=== PATIENT | female | born 1930 | race Caucasian/White ===

== ENCOUNTER 2016-11-11 13:03 | Emergency (ER) | payer MEDICARE ==
[~2016-11-11] VITALS: Ht 170.2 cm; Wt 100.0 kg
[~2016-11-11 13:03] MED LIST: CARV6.25 PO; CHOL200025 PO; DULO20CA PO; FURO40TA4 PO; LISI-571 PO; MAGN250T29 PO; MULT-922 PO; SIMV40TA5 PO
[2016-11-11 13:06] VITALS: BP 127/71; PULSE 87; RESP 30; O2SAT 91
[2016-11-11 13:45] VITALS: PULSE 88; RESP 17; O2SAT 92
--- NOTE | 2016-11-11 14:51 | DRSVH ---
PROCEDURE: X-RAY CHEST ONE VIEW, PORTABLE ([id number]) INDICATIONS: cough for 2 weeks TECHNIQUE: One view of the chest was acquired. COMPARISON: [facility], CR, XR CHEST 2VW, 07/10/2016, 12:47. FINDINGS: Surgical changes and devices: Cardiac AICD Lungs and pleura: No pleural effusions or pneumothorax. Lungs are clear. Mediastinum: Mediastinal contours appear normal. Heart size is normal. Bones and chest wall: No suspicious bony lesions. Overlying soft tissues appear unremarkable. IMPRESSION: No acute disease Dictated by: Real Jon M.D. on 11/11/2016 at 14:49 Approved by: Real Jon M.D. on 11/11/2016 at 14:49
[2016-11-11 14:56] LABS: BASOPHILS % (AUTO) 0.2 % (0-3); EOSINOPHILS % (AUTO) 0.6 % (0-5); MONOCYTES % (AUTO) 10.2 % (4-12); Mean Corpuscular Hemoglobin 31.5 pg (27.0-35.0); Mean Corpuscular Volume 97.9 fL (81-100); NEUTROPHILS % (AUTO) 65.4 % (40-74); Platelet Count 170 bil/L (150-400)
--- NOTE | 2016-11-11 15:03 | ED.REPORT ---
HPI-Dyspnea / Wheezing Date of Service Nov 11, 2016 ED Provider: Dr. Do An 86 year old female with a history of bronchitis infections, asthma that only occurs during episodes of bronchitis, diabetes, CHF, peripheral neuritis, diffuse large cell B lymphoma, and anthracite induced cardio myopathy presents to the ED complaining of a wet, productive cough onset 2 weeks ago. Associated symptoms include nausea, weakness, SOB and loss of appetite with the patient being unable to eat for the last couple of days. SOB has been relieved by O2 given in the ED. The patient describes that current symptoms are very similar to those associated with past bronchitis infections. She has not had a bronchitis infection in a few years. She has not seen a doctor in the last two weeks, thinking that her symptoms were from a virus that she could overcome on her own. She reports having a pacemaker, defibrillator, and an albuterol inhaler. Her inhaler doses in May. The patient is pretty sure that they have taken Zithromax in the past and she reports no allergies to any antibiotics. She does not take medications for her diabetes. She lives in [facility]. Nursing Notes Stated Complaint: COUGH/NAUSEA Chief Complaint: Respiratory Complaints Nursing Notes Reviewed: Yes Allergies: Coded Allergies: nortriptyline (Verified Allergy, Unknown, 11/11/16) acetaminophen (Verified Adverse Reaction, Intermediate, Nausea, 11/11/16) hydrocodone bitartrate (Verified Adverse Reaction, Intermediate, Nausea, ) Scheduled Azithromycin (Zithromax) 250 Mg Tablet 250 MG PO DAILY Carvedilol (Coreg) 6.25 Mg Tablet 1.5 TAB PO BID Cholecalciferol (Vitamin D3) (Vitamin D3) 2,000 Unit Tablet 2,000 UNIT PO DAILY Duloxetine (Cymbalta) 20 Mg Capsule 20 MG PO DAILY Furosemide (Furosemide) 40 Mg Tablet 40 MG PO DAILY Lisinopril (Lisinopril) 5 Mg Tablet 5 MG PO BID Magnesium Oxide (Magnesium) 250 Mg Tablet 250 MG PO BID Multivitamins-Min/FA/Ginkgo (One Daily For Women 50+ Adv Tb) 1 Each Tablet 1 EACH PO DAILY Prednisone (PredniSONE) 20 Mg Tablet 40 MG PO DAILY Simvastatin (Simvastatin) 40 Mg Tablet 10 MG PO HS Scheduled PRN Albuterol Sulfate (Ventolin HFA Inhaler) 200 Puff/18 Gm Inhaler 1 PUFF INH Q4 PRN PRN For Wheezing Ondansetron ODT (Zofran ODT) 4 Mg Tablet 4 MG PO Q4H PRN PRN For Nausea General Time Seen by MD: 15:03 Chief Complaint Cough Hx Obtained From: Patient Arrived By: Walk-in Sudden in Onset?: Yes Onset Occurred: More than a week ago... 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 Gillespie is her oncologist. Reports: Asthma (Associated with bronchitis infections. ), Congestive heart failure, Diabetes mellitus Past Surgical History none reported. Smoking History Never Smoker Review of Systems Review of Systems Note: lossof appetite. Respiratory: Reports: Prod cough, clear, Shortness of breath Complete sys rev & neg: except as marked. GI: Reports: Nausea Neurologic: Reports: Weakness Physical Exam Initial Vital Signs Vital Signs (First) Date Time Temp Pulse Resp B/P Pulse Ox O2 Delivery O2 Flow Rate FiO2 11/11/16 13:06 36.8 87 30 127/71 91 Room Air 11/11/16 15:37 2 Initial VS: Reviewed General/Constitutional: Awake, Alert Neck: Atraumatic, Full range of motion Respiratory / Chest: No respiratory distress diffuse expitory wheezing. no increased work of breathing. Cardiovascular: Heart rate NL, Regular rhythm, Heart sounds NL, No gallop, No murmurs, No rubs ENT: Atraumatic, Mucous membranes moist Abdomen: Atraumatic, Soft, Non-tender, No guarding, No rebound Back: Atraumatic, Full range of motion Trace edema in lower extremities. Skin: Atraumatic, Color NL, Warm, Dry Neurologic: Oriented X3, Speech NL Head / Eyes: Atraumatic, Normocephalic, PERRL, EOMI Upper Extremity / MS: Atraumatic, Full range of motion Wrist / Hand: Atraumatic, Full range of motion Ankle / Foot: Atraumatic, Full range of motion Interpretation & Diagnostics Lab Results Interpretation Result Diagram: 11/11/16 1430 11/11/16 1430 Test 11/11/16 14:30 White Blood Count 4.6th/mm3 (3.8-10.1) Red Blood Count 3.75mil/mm3 (3.90-5.20) Hemoglobin 11.8g/dL (12.0-15.6) Hematocrit 36.7% (35.0-46.0) Mean Corpuscular Volume 97.9fL (81-100) Mean Corpuscular Hemoglobin 31.5pg (27.0-35.0) Mean Corpuscular Hemoglobin Concent 32.2% (32.0-37.0) Red Cell Distribution Width 12.6% (12.3-15.4) Platelet Count 170bil/L (150-400) Neutrophils (%) (Auto) 65.4% (40-74) Lymphocytes (%) (Auto) 23.6% (14-46) Monocytes (%) (Auto) 10.2% (4-12) Eosinophils (%) (Auto) 0.6% (0-5) Basophils (%) (Auto) 0.2% (0-3) Sodium Level 139mEq/L (134-144) Potassium Level 4.3mEq/L (3.5-5.2) Chloride Level 100mEq/L (97-108) Carbon Dioxide Level 26mmol/L (18-29) Blood Urea Nitrogen 11mg/dL (8-27) Creatinine 0.83mg/dL (0.57-1.00) Estimat Glomerular Filtration Rate 94mL/min (>59) Glucose Level 166mg/dL (60-99) Calcium Level 8.5mg/dL (8.5-10.1) Total Bilirubin 0.5mg/dL (0.0-1.2) Aspartate Amino Transf (AST/SGOT) 23U/L (0-50) Alanine Aminotransferase (ALT/SGPT) 11U/L (0-32) Alkaline Phosphatase 67U/L (25-165) Total Protein 6.9g/dL (6.4-8.4) Albumin 3.7g/dL (3.4-5.0) Hold Osto Top Tube Received (Received) X-Ray Chest Interpretation Chest Xray Interpretation: IMPRESSION: No acute disease Dictated by: Real Jon M.D. on 11/11/2016 at 14:49 Approved by: Real Jon M.D. on 11/11/2016 at 14:49 View: Portable, 1 view Re-Eval/Medical Decision Med Decision/Clinical Course 86-year-old female with a history of bronchitis and asthma presents with wheezing, borderline hypoxia, and shortness of breath. She received breathing treatment here and felt much better. She also received steroids, azithromycin, and Zofran to help with her nausea. Before discharge her pulse ox is borderline hovering around 90 patient felt much better and was agreeable to go home. We did a road test and her pulse ox remained around 93 but she became mildly tachycardic at 107. I went to recheck her prior to discharge and she was sleeping and pulse ox is 92%. Again patient expressed that she is feeling better and comfortable being discharged home Source of Hx: Old records Re-Evaluation/Progress #1: Time of Eval: 15:11 Re-Evaluation/Progress Note: Rechecked patient, explained diagnosis and plan for discharge. Patient understands and agrees with the plan. Re-Evaluation/Progress #2: Time of Eval: 16:06 Re-Evaluation/Progress Note: Rechecked patient. Her oxygen is at 96%. She is off O2 now. Wheezing persists, but she feels better. Re-Evaluation/Progress #3: Time of Eval: 16:32 Re-Evaluation/Progress Note: Rechecked patient. Notified by nurse that patient oxygen is hovering around 90%, she is on room air. Plan to perform road test prior to patient departure. Re-Evaluation/Progress #4: Time of Eval: 16:52 Re-Evaluation/Progress Note: Rechecked patient who is sleeping in her bed. Her oxygen is 92%. Counseled Regarding: Diagnosis, Lab results, Need for follow-up, When/why to return to ED Discharge & Departure Impression: Primary Impression: Acute bronchitis Bronchitis organism: unspecified organism Qualified Code: J20.9 - Acute bronchitis, unspecified Additional Impressions: Wheezing Nausea Hyperglycemia Disposition: Home Discharge Condition All VS Reviewed: Yes Condition: Stable Additional Instructions: You were found to have bronchitis here in the ER. Your labs looked good except for an elevated blood sugar which is related to your illness. You were treated with the first dose of zithromax(antibiotic) here as well as predisone, albuterol and zofran to help with nausea. Take Zithromax antibiotic as directed with food for 4 more days. Also take prednisone 40mg once daily to help with wheezing. Take nausea medication as needed. Return to the emergency department for any new or worsening symptoms. Please follow up with your doctor next week as scheduled. Referrals: Shelby Haynes (PCP) Shakira Attestation Portions of this note were transcribed by Enrique Bansal. I, Dr. Do personally performed the history, physical exam and medical decision-making; I reviewed and confirmed the accuracy of the information in the transcribed note. Signed by: Shakira Castro, 11/11/2016 1646. copies to: Shelby Haynes Gary R DO Nov 11, 2016 15:03 Enrique Bansal Nov 11, 2016 15:10
[2016-11-11] MEDS ORDERED: Albuterol-Ipratropium 3 mL Inhalation Solution NEB ONE (15:15)
[2016-11-11] MEDS ORDERED: ZIT250 PO (15:18)
[2016-11-11] MEDS ORDERED: ALBU18HF INH (15:18)
[2016-11-11] MEDS ORDERED: ONDA4TAB9 PO (15:18)
[2016-11-11 15:37] VITALS: PULSE 72; RESP 20; O2SAT 97
[2016-11-11] MEDS ORDERED: PRE20 PO (16:10)
[2016-11-11] MEDS ORDERED: predniSONE 20 mg Tablet PO ONE (16:15)
[2016-11-11 18:58] VITALS: BP 104/48; PULSE 87; RESP 18; O2SAT 90
[2016-11-30] MEDS ORDERED: ATOR20TA PO (14:42)
== END 2016-11-11 17:30 | disposition home or self-care (01) ==
LOC: SED 13:03
DX: J20.9 Acute bronchitis, unspecified (principal); E11.65 Type 2 diabetes mellitus with hyperglycemia; R11.0 Nausea; R06.2 Wheezing; R53.1 Weakness; I50.9 Heart failure, unspecified; J45.909 Unspecified asthma, uncomplicated; Z88.5 Allergy status to narcotic agent; Z88.8 Allergy status to other drugs, medicaments and biological substances
CPT/HCPCS: 36415; 71010; 80053; 85025; 94664; 99285; J7620